=== PATIENT | male | born 1980 | race African-American/Black ===

== ENCOUNTER 2017-04-26 18:39 | Emergency (ER) | payer MEDICAID ==
[~2017-04-26] VITALS: Ht 175.3 cm; Wt 81.6 kg
[2017-04-26 19:05] VITALS: BP 131/83
[2017-04-26] MEDS ORDERED: NKM (19:05)
[2017-04-26] MEDS ORDERED: HYDROCORTISONE30 G2 TP (19:40)
--- NOTE | 2017-04-26 19:40 | Emergency Room Report ---
History of Present Illness General Chief Complaint: Skin Rash/Abscess Source: Patient Present Illness HPI 37 y/o male c/o rash on face x 6 months. States he uses ketoconazole cream for past 6 months and that rash comes and goes. States rash is at the scalp line anterior to the tragus bilaterally. Describes the rash is itchy. Denies any physical complaints. Allergies: Coded Allergies: No Known Allergies (Unverified , 04/26/17) Patient History Past Medical History: see triage record Past Surgical History: none Pertinent Family History: none Reviewed Nursing Documentation: PMH: Agreed, PSxH: Agreed Nursing Documentation-PMH Past Medical History: No Stated History Review of Systems All Other Systems: negative except mentioned in HPI Physical Exam Vital Signs Date Time Temp Pulse Resp B/P Pulse Ox O2 Delivery O2 Flow Rate FiO2 04/26/17 19:01 98.1 60 16 131/83 97 Room Air Sp02 EP Interpretation: reviewed, normal General Appearance: no apparent distress, alert, GCS 15, non-toxic Head: normocephalic, atraumatic Eyes: bilateral eye PERRL, bilateral eye normal inspection ENT: hearing grossly normal, normal pharynx, no angioedema, normal voice Respiratory: chest non-tender, lungs clear, normal breath sounds, speaking full sentences Cardiovascular #1: regular rate, rhythm, no edema Musculoskeletal: gait/station normal Neurologic: alert, oriented x3 Skin: normal color, warm/dry, well hydrated, rash - erythematous macular rash anterior to tragus bilaterally with silver scales Medical Decision Making PA Attestation Dr. Burciaga is my supervising physician with whom patient management has been discussed with. Diagnostic Impression: Primary Impression: Rash and other nonspecific skin eruption ER Course Pt. presents to the ED c/o rash Ddx considered but are not limited to dermatitis, insect sting, viral exanthem, herpez zoster, cellulitis, abscess Vital signs: are WNL, pt. is afebrile H&PE are most consistent with rash suspicious for eczema ORDERS: none required at this time, the diagnosis is clinical ED INTERVENTIONS: none required at this time. DISCHARGE: At this time pt. is stable for d/c to home. Will provide printed patient care instructions, and any necessary prescriptions. Care plan and follow up instructions have been discussed with the patient prior to discharge. Last Vital Signs Date Time Temp Pulse Resp B/P Pulse Ox O2 Delivery O2 Flow Rate FiO2 04/26/17 19:01 98.1 60 16 131/83 97 Room Air Status: unchanged Disposition: HOME, SELF-CARE Condition: Stable Scripts Hydrocortisone (Hydrocortisone Cream 2.5%) Y Cream.appl 1 APPLIC TP BID for 14 Days, #15 GM Prov: AYLIN YADAV 04/26/17 Patient Instructions: Rash Additional Instructions: Take medication as directed. Advised patient to avoid using or touching whatever might have caused their rash. Patient is to protect their skin from anything that might irritate it or cause an allergy (ie wearing gloves if they need to work with harsh soaps). Advised patient to try using soothing skin products to help with the itching and discomfort which include: unscented, thick moisturizing cream, anti-itch lotion or cream, and a special kind of bath called an oatmeal bath. Advised patient to go to the ER if they experience severe symptoms like pain, widespread swelling, and large blisters, oozing, or crusting of the skin. Patient is to return sooner if their rash does not go away within 2 weeks, or if it gets worse. AYLIN YADAV Apr 26, 2017 19:40
== END 2017-04-26 19:50 | disposition home or self-care (01) ==
LOC: EMR 19:17
DX: R21 Rash and other nonspecific skin eruption (principal)
CPT/HCPCS: 99284

== ENCOUNTER 2017-05-02 16:03 | Emergency (ER) | payer MEDICAID ==
[~2017-05-02] VITALS: Ht 180.3 cm; Wt 86.2 kg
[~2017-05-02 16:03] MED LIST: HYDROCORTISONE30 G2 TP; NKM
[2017-05-02 16:41] VITALS: BP 123/87
--- NOTE | 2017-05-02 16:42 | Emergency Room Report ---
History of Present Illness General Chief Complaint: Skin Rash/Abscess Source: Patient Present Illness HPI 37 YO Male presents to the ED c/O itchy rash to the bilateral jawline intermittent x 2 weeks. pt. states he was seen here previously and rx'd hydrocortisone which did not help. pt. states he did not have pmd to follow up with. pt. denies fevers, chills N/V, or lesions elsewhere on the body. pt. states itching is primary symptom. Denies CP, Palpitations, LOC, AMS, dizziness , Changes in Vision, Sensation, paresthesias, or a sudden severe headache. Allergies: Coded Allergies: No Known Allergies (Unverified , 04/26/17) Patient History Past Medical History: see triage record Past Surgical History: none Pertinent Family History: none Immunizations: UTD Reviewed Nursing Documentation: PMH: Agreed, PSxH: Agreed Nursing Documentation-PMH Past Medical History: No Stated History Review of Systems All Other Systems: negative except mentioned in HPI Physical Exam Vital Signs Date Time Temp Pulse Resp B/P Pulse Ox O2 Delivery O2 Flow Rate FiO2 05/02/17 16:34 97.9 69 18 123/87 99 Room Air Sp02 EP Interpretation: reviewed, normal General Appearance: no apparent distress, alert, GCS 15, non-toxic Head: normocephalic, atraumatic Eyes: bilateral eye PERRL, bilateral eye normal inspection ENT: hearing grossly normal, normal pharynx, no angioedema, normal voice Neck: full range of motion, supple/symm/no masses Respiratory: lungs clear, normal breath sounds, speaking full sentences Cardiovascular #1: regular rate, rhythm, no edema Musculoskeletal: back normal, gait/station normal, normal range of motion, non- tender Neurologic: alert, oriented x3, responsive, motor strength/tone normal, sensory intact, speech normal Psychiatric: judgement/insight normal, memory normal, mood/affect normal Skin: normal color, warm/dry, well hydrated, rash - Tinea of the face, two 1cm circular plaques with annular appearance no blisters, vessicles or crusting.- no evidence of secondary bacterial infection. Lymphatic: no adenopathy Medical Decision Making PA Attestation Dr. Juárez is my supervising Physician whom patient management has been discussed with. Diagnostic Impression: Primary Impression: Rash and other nonspecific skin eruption Additional Impression: Tinea cruris ER Course 37 YO Male presents to the ED c/O itchy rash to the bilateral jawline intermittent x 2 weeks. pt. states he was seen here previously and rx'd hydrocortisone which did not help. pt. states he did not have pmd to follow up with. pt. denies fevers, chills N/V, or lesions elsewhere on the body. pt. states itching is primary symptom. Denies CP, Palpitations, LOC, AMS, dizziness , Changes in Vision, Sensation, paresthesias, or a sudden severe headache. Ddx considered but are not limited to cellulitis, scabies, shingles, varicella, dermatitis, urticaria, eczema, tinea Vital signs: are WNL, pt. is afebrile H&PE are most consistent with Tinea of the face, annular appearance with moderate itching.- no evidence of secondary bacterial infection. ORDERS: none required at this time, the diagnosis is clinical ED INTERVENTIONS: None required at this time. DISCHARGE: At this time pt. is stable for d/c to home. Will provide printed patient care instructions, and any necessary prescriptions. Care plan and follow up instructions have been discussed with the patient prior to discharge. Last Vital Signs Date Time Temp Pulse Resp B/P Pulse Ox O2 Delivery O2 Flow Rate FiO2 05/02/17 16:34 97.9 69 18 123/87 99 Room Air Disposition: HOME, SELF-CARE Condition: Stable Scripts Clotrimazole* (LOTRIMIN*) 15 Gm Cream..g. 1 APPLIC TOPIC TWICE A DAY, #15 GM 1 Refill Prov: Virginia Cevallos P.A. 05/02/17 Ketoconazole (Ketoconazole) 15 Gm Cream..g. 1 APPLIC TOPIC BID, #15 APPLIC 1 Refill Prov: Virginia Cevallos P.A. 05/02/17 Patient Instructions: Body Ringworm, Rash Additional Instructions: Take medications as directed. Follow up with a Primary Care Provider in 3-5 days, even if your symptoms have resolved. --Please review list of primary care clinics, if you do not already have a primary care provider You may also follow up with a [employer] as well. Return sooner to ED if new symptoms occur, or current symptoms become worse. - Please note that this Emergency Department Report was dictated using [employer] joiner technology software, occasionally this can lead to erroneous entry secondary to interpretation by the dictation equipment. Virginia Cevallos May 02, 2017 16:42
[2017-05-02] MEDS ORDERED: NIZORAL 2% C1 APPLIC TOPIC (16:43)
[2017-05-02 16:50] VITALS: BP 123/87
[2017-05-02] MEDS ORDERED: CLOTRIMAZOLE15 GM TOPIC (16:50)
== END 2017-05-02 16:51 | disposition home or self-care (01) ==
LOC: EMR 16:49
DX: B35.6 Tinea cruris (principal)
CPT/HCPCS: 99284

== ENCOUNTER 2019-12-04 16:45 | Emergency (ER) | payer SELFPAY ==
[~2019-12-04] VITALS: Ht 180.3 cm; Wt 86.2 kg
[~2019-12-04 16:45] MED LIST changes: +CLOTRIMAZOLE15 GM TOPIC; +NIZORAL 2% C1 APPLIC TOPIC
--- NOTE | 2019-12-04 16:50 | NUR ---
ED Nurse Note: Pt ambulated to ed stating that after eats he feels lightheaded and that his head is throbbing. he wants to make sure he doesnt have HTN or DM. pt states this has been happening for 3 days. Placed in chair, accucheck done with 120mg/dl result. Pt is AOx4; calm and cooperative.
[2019-12-04 16:55] VITALS: BP 132/81
[2019-12-04 17:00] VITALS: BP_SYST 128; BP_SYST 138; BP_SYST 141; BP_DIAS 100; BP_DIAS 78; BP_DIAS 90
--- NOTE | 2019-12-04 17:57 | Emergency Room Report ---
History of Present Illness General Chief Complaint: General Complaint Source: Patient Present Illness HPI 39-year-old male presents to the emergency department complaining of multiple recurrent episodes of feeling lightheaded with a throbbing headache immediately after eating meals. Patient reports this is been going on for approximately 3 to 4 days now. He denies nausea, vomiting, constipation or diarrhea. He denies fevers or chills. He denies decrease in appetite. He denies neck pain/ stiffness. He denies acute onset of his headache he reports progressive throbbing sensation. Patient is concerned that he may have high blood pressure and diabetes as he was told to get checked out. Patient denies previous abnormal lab work or being told he was prediabetic or prehypertensive. Patient states he currently does not have a primary care provider. Denies cardiac hx., CP, Palpitations, LOC, AMS, dizziness, photophobia, Changes in Vision, Sensation , paresthesias, or a sudden severe headache. He denies pain at this time. denies abdominal pain during episodes. He denies polydipsia or polyuria. He denies dysuria or hematuria. Allergies: Coded Allergies: No Known Allergies (Unverified , 04/26/17) Patient History Past Medical History: see triage record Past Surgical History: none Pertinent Family History: none Reviewed Nursing Documentation: PMH: Agreed; PSxH: Agreed Nursing Documentation-PMH Past Medical History: No Stated History Review of Systems All Other Systems: negative except mentioned in HPI Physical Exam Vital Signs Date Time Temp Pulse Resp B/P (MAP) Pulse Ox O2 Delivery O2 Flow Rate FiO2 12/04/19 16:48 98.2 67 16 132/81 (98) 100 Room Air Sp02 EP Interpretation: reviewed, normal General Appearance: no apparent distress, alert, GCS 15, non-toxic Head: normocephalic, atraumatic Eyes: bilateral eye normal inspection, bilateral eye PERRL, bilateral eye other - no photophobia ENT: hearing grossly normal, normal voice Neck: full range of motion, no meningismus Respiratory: lungs clear, normal breath sounds, no wheezing, speaking full sentences Cardiovascular #1: regular rate, rhythm Gastrointestinal: non tender, soft, no peritonitis, non-distended, no guarding Musculoskeletal: normal range of motion, gait/station normal, non-tender Neurologic: alert, motor strength/tone normal, oriented x3, sensory intact, responsive, speech normal, grossly normal, normal inspection, no focal defects Psychiatric: judgement/insight normal Skin: no rash, normal color Medical Decision Making PA Attestation Dr. Karimi is my supervising Physician whom patient management has been discussed with. Diagnostic Impression: Primary Impression: Encounter for medical screening examination ER Course 39-year-old male presents to the emergency department complaining of multiple recurrent episodes of feeling lightheaded with a throbbing headache immediately after eating meals. Patient reports this is been going on for approximately 3 to 4 days now. He denies nausea, vomiting, constipation or diarrhea. He denies fevers or chills. He denies decrease in appetite. He denies neck pain/ stiffness. He denies acute onset of his headache he reports progressive throbbing sensation. Patient is concerned that he may have high blood pressure and diabetes as he was told to get checked out. Patient denies previous abnormal lab work or being told he was prediabetic or prehypertensive. Patient states he currently does not have a primary care provider. Denies cardiac hx., CP, Palpitations, LOC, AMS, dizziness, photophobia, Changes in Vision, Sensation , paresthesias, or a sudden severe headache. He denies pain at this time. denies abdominal pain during episodes. He denies polydipsia or polyuria. He denies dysuria or hematuria. Ddx considered but are not limited to SAH, migraine, dehydration, Mnire's, BPPV, labyrinthitis, cerebellar stroke, hypovolemia, cardiac cause. Vital signs: are WNL, pt. is afebrile H&PE are most consistent with :Normal medical screening exam/physical exam. The patient is nontoxic in appearance, in no acute distress and not currently having his symptoms. ORDERS: AccuCheck: 120 - Orthostatic VS: WNL EKG: NSR 66 bpm ED INTERVENTIONS: Patient is given reassurance and he is also going to receive a list of several clinics that he can establish himself for primary care. D/w pt. ultimately to test for DM he should have HbA1c performed. -I do not identify an emergent condition at this time. With current presentation , pt. is stable for close outpatient follow up and conservative treatment. D/ w pt. to return promptly to ED with worsening or new symptoms.- Pt. verbalizes' understanding and agreement with proposed treatment plan. DISCHARGE: At this time pt. is stable for d/c to home. Will provide printed patient care instructions, and any necessary prescriptions. Care plan and follow up instructions have been discussed with the patient prior to discharge. EKG Diagnostic Results EP Interpretation: Dr. Karimi Rate: normal - 66 Rhythm: NSR ST Segments: no acute changes ASA given to the pt in ED: No PA Scribe Text This Interpretation was scribed by IVIS Cevallos. Last Vital Signs Date Time Temp Pulse Resp B/P (MAP) Pulse Ox O2 Delivery O2 Flow Rate FiO2 12/04/19 17:00 98.2 65 24 128/78 100 Room Air 141/90 138/100 Disposition: HOME, SELF-CARE Condition: Stable Patient Instructions: Dizziness, [id number], Hemoglobin A1c Test, Medical Screening Exam Additional Instructions: Take medications as directed. Follow up with a Primary Care Provider in 3-5 days, even if your symptoms have resolved. --Please review list of primary care clinics, if you do not already have a primary care provider Return sooner to ED if new symptoms occur, or current symptoms become worse. - Please note that this Emergency Department Report was dictated using [employer] operator technology software, occasionally this can lead to erroneous entry secondary to interpretation by the dictation equipment. Virginia Cevallos Dec 04, 2019 17:57
[2019-12-04 18:16] VITALS: BP 138/100
--- NOTE | 2019-12-04 18:16 | NUR ---
ER DISCHARGE NOTE: Patient is cleared to be discharged per ERMD, pt is aox4, on room air, with stable vital signs. pt was given dc and prescription instructions, pt was able to verbalize understanding, pt id band removed. pt is able to ambulate with steady gait. pt took all belongings.
== END 2019-12-04 18:16 | disposition home or self-care (01) ==
LOC: EMR 17:20
DX: R42 Dizziness and giddiness (principal); R51 Headache
CPT/HCPCS: 82962; 93005; 99283